=== PATIENT | female | born 1980 | race Caucasian/White ===

== ENCOUNTER 2019-01-17 11:25 | Outpatient (CLI) | payer OTHER ==
[2019-01-17 12:19] LABS: Bacteria,Urine 1+ /HPF (Negative); Bilirubin,Urine NEG (Negative); Blood,Urine NEG (Negative); Color,Urine Yellow (Yellow); Mucus,Urine FEW /HPF; Protein,Urine <15 mg/dL mg/dL (Negative); Urobilinogen,Urine < 2.0 mg/dL (<2.0)
[2019-01-17] MEDS ORDERED: LACTATED RINGERS 1,000 ML ONE ×2 (14:12→16:57)
[2019-01-17] MEDS: BRETHINE SUB-Q PRN ×2 (18:09→19:03)
[2019-01-17 19:49] VITALS: BP 100/57
== END 2019-01-17 20:25 | disposition home or self-care (01) ==
LOC: TRG 11:25
PROVIDERS: ATTEND Obstetrics & Gynecology
DX: O26.893 Other specified pregnancy related conditions, third trimester (principal); R10.32 Left lower quadrant pain; O09.523 Supervision of elderly multigravida, third trimester; O47.03 False labor before 37 completed weeks of gestation, third trimester; Z3A.28 28 weeks gestation of pregnancy
CPT/HCPCS: 59025; 81001; 96372; J3105; J7120; 96360

== ENCOUNTER 2019-04-09 15:46 | Outpatient (CLI) | payer OTHER ==
[2019-04-09 16:23] VITALS: BP 108/64
--- NOTE | 2019-04-09 20:15 | Ultrasound Report ---
Examination: Ultrasound Obstetrical Limited, 04/09/2019 INDICATION: Evaluate well being. The patient reports a history of fall. COMPARISON: No previous studies are available for comparison FINDINGS: There is a single living intrauterine with the head in the cephalic position. Amniotic flui d index measures 10.5 cm, which is within normal limits. The heart rate is 133 beats per minute . Signer Name: Maci Flores MD Signed: 04/09/2019 8:10 PM Workstation Name: [email or web address]
--- NOTE | 2019-04-09 20:16 | Ultrasound Report ---
ULTRASOUND BIOPHYSICAL PROFILE INDICATION / CLINICAL INFORMATION: The patient has a history of fall. Evaluate well-being. COMPARISON: Limited obstetrical ultrasound, 04/09/2019 FINDINGS: BREATHING MOVEMENT = 2 GROSS BODY MOVEMENT = 2 TONE = 2 QUALITATIVE AMNIOTIC FLUID VOLUME = 2 TOTAL BIOPHYSICAL SCORE = 02/13 AMNIOTIC FLUID INDEX (cm) = 10.5 PRESENTATION: Cephalic. HEART RATE (beats per minute): 133 IMPRESSION: 1. biophysical profile = 02/13 Signer Name: Maci Flores MD Signed: 04/09/2019 8:11 PM Workstation Name: [id number]
[2019-04-09] MEDS ORDERED: LACTATED RINGERS 1,000 ML ONE (20:55)
[2019-04-09] MEDS ORDERED: REGLAN ONE (21:00)
[2019-04-09] MEDS ORDERED: PITOCin/NS 20 UNIT/1000ML DRIP 0 MILLIUNITS/0 ML BAG IV ONE (21:00)
[2019-04-09] MEDS ORDERED: BICITRA ONE (21:00)
[2019-04-09] MEDS ORDERED: PEPCID IV ONE (21:00)
== END 2019-04-09 23:51 | disposition home or self-care (01) ==
LOC: TRG 15:46 → LD 15:48 → TRG 23:51
PROVIDERS: ATTEND Obstetrics & Gynecology
DX: O26.893 Other specified pregnancy related conditions, third trimester (principal); O09.523 Supervision of elderly multigravida, third trimester; W19.XXXA Unspecified fall, initial encounter; Z3A.39 39 weeks gestation of pregnancy; Y93.89 Activity, other specified; Y92.89 Other specified places as the place of occurrence of the external cause; Y99.8 Other external cause status
CPT/HCPCS: 59025; 76815; 76819; J2590; J2765; J7120

== ENCOUNTER 2019-04-15 06:39 | Inpatient (IN) | payer SELFPAY ==
[2019-04-15] MEDS ORDERED: BUTORPHANOL 2 MG/1 ML INJ IV PRN (08:06)
[2019-04-15] MEDS ORDERED: ONDANSETRON 4 MG/2 ML INJ IV PRN ×2 (08:06→11:00)
[2019-04-15] MEDS ORDERED: fentaNYL 100 MCG/2 ML INJ IV PRN (08:06)
[2019-04-15] MEDS ORDERED: TERBUTALINE 1 MG/1 ML INJ SUB-Q PRN (08:06)
[2019-04-15] MEDS ORDERED: ePHEDrine SULFATE 50 MG/1 ML INJ IV PRN (08:06)
[2019-04-15] MEDS ORDERED: LACTATED RINGERS 1,000 ML ONE (08:12)
[2019-04-15 08:18] LABS: Hemoglobin 12.7 gm/dl (10.1-14.3); Mean Corpuscular HGB Conc 34 % (30-34); Mean Corpuscular Volume 91 fl (79-97); Platelet Count 151 K/mm3 (140-440); Red Blood Count 4.05 M/mm3 (3.65-5.03)
--- NOTE | 2019-04-15 08:27 | History and Physical Report ---
History of Present Illness Date of examination: 04/15/19 Date of admission: 04/15/19 07:50 Chief complaint: Active labor; 40.4 weeks gestation History of present illness: 38 yo, @ 40.4 weeks gestation, who initiated care with [facility] Team Lead @ 8.3 wks gestation. Her course has been complicated by AMA and anemia. She presents to [facility] this am with reports of regular, painful ctxs for the past couple of hours. She reports positive FM. Denies VB or LOF. Labs: O+, antibody negative; Rubella immune; VDRL non-reactive; HBsAg negative; HIV negative; GC/Chlamydia negative; urine culture negative; 1 hr gtt - 118; GBS negative. Past History Past Medical History: other (Degenerative disc disease 2017 (Cervical spine)) Past Surgical History: no surgical history Family/Genetic History: heart disease, hypertension, cancer (skin) Social history: , lives with family, full code. denies: smoking, alcohol abuse, prescription drug abuse, IV drug use - Obstetrical History Expected Date of Delivery: 04/11/19 Actual Gestation: 40 Week(s) 4 Day(s) : 4 Para: 2 Hx # Term Pregnancies: 2 Number of Pregnancies: 0 Spontaneous Abortions: 1 Induced : 0 Number of Living Children: 2 #1 Infant Gender: Female year: 2,007 Birthweight: 3.856 kg Method of Delivery: Vaginal Gestational age at delivery: 40 Complications: none #2 year: 2,011 (SAB) #3 Infant Gender: Female year: 2,012 Birthweight: 4.082 kg Method of Delivery: Vaginal Gestational age at delivery: 40 Complications: none Medications and Allergies Allergies Allergy/AdvReac Type Severity Reaction Status Date / Time No Known Allergies Allergy Verified 01/17/19 11:46 Home Medications Medication Instructions Recorded Confirmed Last Taken Type No Known Home Medications [No 04/15/19 04/15/19 Unknown History Reported Home Medications] Active Meds: Active Medications Butorphanol Tartrate (Stadol) 2 mg IV Q2H PRN PRN Reason: Pain , Severe (7-10) Ephedrine Sulfate (Ephedrine Sulfate) 10 mg IV Q2M PRN PRN Reason: Hypotension Fentanyl (Sublimaze) 100 mcg IV Q2H PRN PRN Reason: Labor Pain Oxytocin/Sodium Chloride (Pitocin/Ns 20 Unit/1000ml Drip) 20 units in 1,000 mls @ 125 mls/hr IV DIRECT JAMAAL Oxytocin/Sodium Chloride (Pitocin/Ns 30 Unit/500ml) 30 units in 500 mls @ 2 mls/hr IV TITR JAMAAL; Protocol Lactated Ringer's (Lactated Ringers) 1,000 mls @ 125 mls/hr IV DIRECT JAMAAL Lidocaine (Xylocaine 2%) 20 ml INFILTRATI ONCE ONE Stop: 04/15/19 08:07 Mineral Oil (Mineral Oil) 30 ml PO QHS PRN PRN Reason: Constipation Ondansetron HCl (Zofran) 4 mg IV Q8H PRN PRN Reason: Nausea And Vomiting Terbutaline Sulfate (Brethine) 0.25 mg SUB-Q ONCE PRN PRN Reason: Hyperstimulation/Hypertonicity Review of Systems All systems: negative Genitourinary: contractions - Vital Signs Vital signs: Vital Signs Pulse BP 83 128/78 04/15/19 07:07 04/15/19 07:07 Temp Pulse Resp BP Pulse Ox 97.4 F L 79 20 109/65 96 04/15/19 07:58 04/15/19 08:20 04/15/19 07:58 04/15/19 07:58 04/15/19 08:20 - Physical Exam Breasts: Positive: deferred Cardiovascular: Regular rate Lungs: Positive: Normal air movement Abdomen: Positive: other (gravid) Genitourinary (Female): Positive: normal external genitalia Vagina: Positive: normal moisture Uterus: Positive: other (S=D) Extremities: Positive: normal Deep Tendon Reflex Grade: Normal +2 - Obstetrical FHR: category 1 Uterine Contraction Monitor Mode: External Cervical Dilatation: 7 Cervical Effacement Percentage: 90 station: 0 Uterine Contraction Frequency (min): 4-5 Uterine Contraction Pattern: Irregular Uterine Tone Measurement Phase: Resting Uterine Contraction Intensity: Strong/Firm Results Result Diagrams: 04/15/19 Unknown All other labs normal. Assessment and Plan - Patient Problems (1) 40 weeks gestation of Current Visit: Yes Status: Acute (2) Active labor at term Current Visit: Yes Status: Acute Plan to address problem: Admit to L & D AROM, clear fluids @ 0820 Pain meds as desired Anticipate (3) Advanced maternal age in Current Visit: Yes Status: Acute
[2019-04-15] MEDS ORDERED: OXYTOCIN 20 UNIT/1000ML DRIP 20 UNITS/1,000 ML BAG IV SCH (09:00)
[2019-04-15] MEDS ORDERED: LACTATED RINGERS 1,000 ML IV SCH (09:00)
[2019-04-15] MEDS ORDERED: OXYTOCIN DRIP 30 UNITS/500 ML BAG IV SCH (09:00)
[2019-04-15] MEDS ORDERED: LIDOCAINE (2%) 20 MG/1 ML VIAL 20 ML MDV INFILTRATI ONE (09:30)
[2019-04-15] MEDS ORDERED: diphenhydrAMINE 25 MG CAP PO PRN (10:30)
--- NOTE | 2019-04-15 10:35 | Procedure Note ---
OB Delivery Note - Delivery Date of Delivery: 04/15/19 (5481) Surgeon: MALOU ROGEL (CNM) Estimated blood loss: other (250cc) - Vaginal Delivery presentation: vertex Delivery position: OA (EMILY) Intrapartum events: none Delivery augmentation: rupture of membranes (AROM @ 0820) Delivery monitor: external FHT, external uterine Route of delivery: Delivery placenta: spontaneous (0952) Delivery cord: 3 umbilical vessels Episiotomy: none Delivery laceration: 2nd degree (Rt perineal) Delivery repair: vicryl (3.0 on SH) Anesthesia: none Delivery comments: of quiet, viable female infant, placed directly to maternal abdomen. Cried after stimulation. Cord double clamped, cut by FOB, after cessation of pulsation. Placenta spontaneously delivered, lemuel, disposed per hospital policy. Fundus firm @ U, hemostasis maintained. Second degree, right perineal laceration, repaired without difficulty. Mother and baby safe, stable and bonding well. - A at 1 minute: 7 at 5 minutes: 9 Infant Gender: Female (Weight: 4041 gms (9 lbs), length pending)
[2019-04-15] MEDS ORDERED: LANOLIN/ZINC/DIMETHICONE (LANSINOH) 7 GM TP PRN (11:00)
[2019-04-15] MEDS ORDERED: PROMETHAZINE 25 MG TAB PO PRN (11:00)
[2019-04-15] MEDS ORDERED: WITCH HAZEL/ GLYCERIN PAD TP PRN (11:00)
[2019-04-15] MEDS: oxyCODONE /ACETAMINOPHEN 5-325MG TAB PO PRN (13:26)
[2019-04-15] MEDS ORDERED: BENZOCAINE/MENTHOL 20/0.5% TOP SPRAY 56 GM TP PRN (16:37)
[2019-04-15] MEDS: IBUPROFEN 600 MG TAB PO SCH ×2 (17:05→22:01)
[2019-04-15 20:59] LABS: Hematocrit 35.7 % (30.3-42.9); Hemoglobin 12.1 gm/dl (10.1-14.3)
[2019-04-15] MEDS ORDERED: MINERAL OIL 30 ML ORAL LIQD PO PRN (22:00)
[2019-04-15] MEDS ORDERED: MAGNESIUM HYDROXIDE (MOM) ORAL LIQD UDC PO PRN (22:00)
[2019-04-16] MEDS: oxyCODONE /ACETAMINOPHEN 5-325MG TAB PO PRN ×2 (04:46→16:25)
[2019-04-16] MEDS: IBUPROFEN 600 MG TAB PO SCH ×3 (04:47→16:26)
[2019-04-16] MEDS ORDERED: FERROUS SULFATE 325 MG TAB PO SCH (10:00)
[2019-04-16] MEDS ORDERED: medroxyPROGESTERone ACETATE 150 MG/ML SYRINGE IM ONE ×2 (10:32→20:00)
--- NOTE | 2019-04-16 10:36 | Progress Note ---
Assessment and Plan A: PP Day #1 Stable P: Follow Routine Orders D/C home today per patient request Depo Provera prior to discharge RTO in 6 Weeks Subjective - Subjective Date of service: 04/16/19 Patient reports: appetite normal, voiding normally, pain well controlled, flatus, ambulating normally : doing well, bottle feeding (and ) Objective - Vital Signs Latest vital signs: Vital Signs Temp Pulse Resp BP BP Pulse Ox 04/16/19 08:16 97.9 F 78 20 111/69 04/16/19 04:47 18 04/16/19 04:46 18 04/16/19 00:00 98.4 F 74 18 104/68 04/15/19 20:00 98.6 F 71 16 112/69 04/15/19 15:32 98.4 F 67 20 102/55 96 04/15/19 11:49 98.2 F 68 15 93/53 97 04/15/19 11:30 98.4 F 04/15/19 11:15 74 104/63 04/15/19 11:00 75 105/67 04/15/19 10:45 78 89/54 Intake and Output 04/15/19 04/16/19 04/16/19 22:59 06:59 14:59 Intake Total 120 120 Output Total 300 Balance -180 120 Intake: Oral 120 120 Output: Urine 300 Void 300 Other: Total, Intake Amount 120 120 Total, Output Amount 300 # Voids Void 1 1 - Exam Breasts: Present: normal Cardiovascular: Present: Regular rate Abdomen: Present: normal appearance, soft, normal bowel sounds Uterus: Present: normal, firm, fundal height below umbilicus Extremities: Present: normal
--- NOTE | 2019-04-16 10:38 | Discharge Summary ---
Providers - Providers Date of Admission: 04/15/19 07:50 Date of discharge: 04/16/19 Attending physician: DANYELLE MAGALLANES MD Primary care physician: GAVIN LE MD Hospitalization Reason for admission: active labor Delivery: Episiotomy: none Laceration: none Other procedures: none complications: none Discharge diagnosis: IUP at term delivered Condition at discharge: Good Disposition: DC-01 TO HOME OR SELFCARE Plan - Provider Discharge Summary Activity: routine, no sex for 6 weeks, no heavy lifting 4 weeks, no strenuous exercise Diet: routine Instructions: routine Additional instructions: [] Smoking cessation referral if applicable(refer to patient education folder for contact #) [] Refer to [facility] Booklet Call your doctor immediately for: * Fever > 100.5 * Heavy vaginal bleeding ( >1 pad per hour) * Severe persistent headache * Shortness of breath * Reddened, hot, painful area to leg or breast * Drainage or odor from incision. * Keep incision clean and dry at all times and follow doctor's instructions regarding bathing/showering - Follow up plan Follow up: GAVIN LE MD [Primary Care Provider] - 6 Weeks
[2019-04-16] MEDS ORDERED: FLU VACC QUAD 2019-20 (3 YR UP)/PF 60 MCG/0.5 ML SYRINGE IM ONE (12:00)
[2019-04-16 18:32] VITALS: BP 116/67
== END 2019-04-16 23:37 | disposition home or self-care (01) | DRG 807 ==
LOC: TRG 06:39 → LD 07:50 → OB 12:00
PROVIDERS: ADMIT Obstetrics & Gynecology; ATTEND Obstetrics & Gynecology
PROC: 10E0XZZ Delivery of Products of Conception, External Approach (ICD-10-PCS; principal; 2019-04-15)
PROC: 0KQM0ZZ Repair Perineum Muscle, Open Approach (ICD-10-PCS; 2019-04-15)
PROC: 10907ZC Drainage of Amniotic Fluid, Therapeutic from Products of Conception, Via Natural or Artificial Opening (ICD-10-PCS; 2019-04-15)
DX: O99.02 Anemia complicating childbirth (principal); Z37.0 Single live birth; Z3A.40 40 weeks gestation of pregnancy; Z82.49 Family history of ischemic heart disease and other diseases of the circulatory system; Z80.8 Family history of malignant neoplasm of other organs or systems; O70.1 Second degree perineal laceration during delivery
CPT/HCPCS: 36415; 85014; 85018; 85027; 86592; 86850; 86900; 86901; G0378; A6250; J2590; J3010; J7120

== ENCOUNTER 2020-04-02 23:07 | Emergency (ER) | payer SELFPAY ==
[2020-04-02 23:53] LABS: Basophils % (Auto) 0.5 % (0.0-1.8); Eosinophils # (Auto) 0.2 K/mm3 (0.0-0.4); Eosinophils % (Auto) 2.3 % (0.0-4.3); Hematocrit 34.4 % (30.3-42.9); Hemoglobin 11.9 gm/dl (10.1-14.3); Lymphocytes # (Auto) 2.1 K/mm3 (1.2-5.4); Lymphocytes % (Auto) 28.8 % (13.4-35.0); Mean Corpuscular HGB Conc 35 % (30-34); Mean Corpuscular Volume 84 fl (79-97); Monocytes # (Auto) 0.6 K/mm3 (0.0-0.8); Monocytes % (Auto) 8.3 % (0.0-7.3); Platelet Count 225 K/mm3 (140-440)
[2020-04-03 00:16] LABS: Alanine Aminotransferase 16 units/L (7-56); Albumin 4.1 g/dL (3.9-5); Blood Urea Nitrogen 13 mg/dL (7-17); Calcium 9.2 mg/dL (8.4-10.2); Hemolysis Index 8
[2020-04-03 00:18] LABS: Bilirubin,Urine NEG (Negative); Blood,Urine MOD (Negative); Color,Urine Straw (Yellow); Protein,Urine <15 mg/dL mg/dL (Negative); Urobilinogen,Urine < 2.0 mg/dL (<2.0)
--- NOTE | 2020-04-03 00:37 | Emergency Department Report ---
ED HPI - General Chief complaint: Vaginal Bleeding Stated complaint: VAGINAL BLEEDING Time Seen by Provider: 04/03/20 00:03 Source: patient Mode of arrival: Ambulatory Limitations: No Limitations - History of Present Illness Initial comments: 39-year-old female presents with complaints of vaginal bleeding in x last night. She states she is G4, . She also reports some right sided abdominal pain that she rates as a 5/10 in severity describes as a cramping pain. Patient states the bleeding is light and denies any dy suria/hematuria, vaginal discharge, fever/chills/sweats, nausea/vomiting/diarrhea, or constipation. She states her first TRANSACTION ADVISORY SERVICES MANAGER appointment is scheduled for next week. - Related Data Home Medications Medication Instructions Recorded Confirmed Last Taken No Known Home Medications [No 04/15/19 04/15/19 Unknown Reported Home Medications] Allergies Allergy/AdvReac Type Severity Reaction Status Date / Time No Known Allergies Allergy Verified 01/17/19 11:46 ED Review of Systems ROS: Stated complaint: VAGINAL BLEEDING Other details as noted in HPI Constitutional: denies: chills, diaphoresis, fever, malaise, weakness Respiratory: denies: shortness of breath Cardiovascular: denies: chest pain Gastrointestinal: abdominal pain Genitourinary: denies: urgency, dysuria, frequency, hematuria, discharge, dyspareunia Skin: denies: rash, lesions Neurological: denies: headache Hematological/Lymphatic: denies: swollen glands ED Past Medical Hx - Past Medical History Previous Medical History?: No Hx Hypertension: No Hx Congestive Heart Failure: No Hx Diabetes: No Hx Deep Vein Thrombosis: No Hx Renal Disease: No Hx Sickle Cell Disease: No Hx Seizures: No Hx Asthma: No Hx COPD: No Hx HIV: No - Surgical History Past Surgical History?: No - Social History Smoking Status: Never Smoker Substance Use Type: None - Medications Home Medications: Home Medications Medication Instructions Recorded Confirmed Last Taken Type No Known Home Medications [No 04/15/19 04/15/19 Unknown History Reported Home Medications] ED Physical Exam - General Limitations: No Limitations General appearance: alert, in no apparent distress - Head Head exam: Present: atraumatic, normocephalic - Eye Eye exam: Present: normal appearance - ENT ENT exam: Present: mucous membranes moist - Neck Neck exam: Present: normal inspection - Respiratory Respiratory exam: Present: normal lung sounds bilaterally. Absent: respiratory distress - Cardiovascular Cardiovascular Exam: Present: regular rate, normal rhythm. Absent: systolic murmur, diastolic murmur, rubs, gallop - GI/Abdominal GI/Abdominal exam: Present: soft, tenderness (Minimal right lower quadrant tenderness to palpation), normal bowel sounds. Absent: distended, guarding, rebound, rigid - Extremities Exam Extremities exam: Present: normal inspection - Back Exam Back exam: Present: normal inspection. Absent: CVA tenderness (R), CVA tenderness (L) - Neurological Exam Neurological exam: Present: alert, oriented X3 - Psychiatric Psychiatric exam: Present: normal affect, normal mood - Skin Skin exam: Present: warm, dry, intact, normal color. Absent: rash ED Course Vital Signs 04/02/20 23:34 Temperature 98.0 F Pulse Rate 73 Respiratory 16 Rate Blood Pressure 113/72 O2 Sat by Pulse 100 Oximetry ED Medical Decision Making - Lab Data Result diagrams: 04/02/20 23:41 04/02/20 23:46 Lab Results 04/02/20 04/02/20 04/02/20 Range/Units 23:41 23:41 23:41 WBC 7.3 (4.5-11.0) K/mm3 RBC 4.10 (3.65-5.03) M/mm3 Hgb 11.9 (10.1-14.3) gm/dl Hct 34.4 (30.3-42.9) % MCV 84 (79-97) fl MCH 29 (28-32) pg MCHC 35 H (30-34) % RDW 16.0 H (13.2-15.2) % Plt Count 225 (140-440) K/mm3 Lymph % (Auto) 28.8 (13.4-35.0) % [place] % (Auto) 8.3 H (0.0-7.3) % Eos % (Auto) 2.3 (0.0-4.3) % Baso % (Auto) 0.5 (0.0-1.8) % Lymph # (Auto) 2.1 (1.2-5.4) K/mm3 [place] # (Auto) 0.6 (0.0-0.8) K/mm3 Eos # (Auto) 0.2 (0.0-0.4) K/mm3 Baso # (Auto) 0.0 (0.0-0.1) K/mm3 Seg Neutrophils % 60.1 (40.0-70.0) % Seg Neutrophils # 4.4 (1.8-7.7) K/mm3 Sodium (137-145) mmol/L Potassium (3.6-5.0) mmol/L Chloride (98-107) mmol/L Carbon Dioxide (22-30) mmol/L Anion Gap mmol/L BUN (7-17) mg/dL Creatinine (0.6-1.2) mg/dL Estimated GFR ml/min BUN/Creatinine Ratio % Glucose (65-100) mg/dL Calcium (8.4-10.2) mg/dL Total Bilirubin (0.1-1.2) mg/dL AST (5-40) units/L ALT (7-56) units/L Alkaline Phosphatase (35-129) units/L Total Protein (6.3-8.2) g/dL Albumin (3.9-5) g/dL Albumin/Globulin Ratio % HCG, Quant 24111 H (0-4) mIU/mL Urine Color (Yellow) Urine Turbidity (Clear) Urine pH (5.0-7.0) Ur Specific [place] (1.003-1.030) Urine Protein (Negative) mg/dL Urine Glucose (UA) (Negative) mg/dL Urine Ketones (Negative) mg/dL Urine Blood (Negative) Urine Nitrite (Negative) Urine Bilirubin (Negative) Urine Urobilinogen (<2.0) mg/dL Ur Leukocyte Esterase (Negative) Urine WBC (Auto) (0.0-6.0) /HPF Urine RBC (Auto) (0.0-6.0) /HPF U Epithel Cells (Auto) (0-13.0) /HPF Blood Type O POSITIVE 04/02/20 04/02/20 Range/Units 23:46 23:58 WBC (4.5-11.0) K/mm3 RBC (3.65-5.03) M/mm3 Hgb (10.1-14.3) gm/dl Hct (30.3-42.9) % MCV (79-97) fl MCH (28-32) pg MCHC (30-34) % RDW (13.2-15.2) % Plt Count (140-440) K/mm3 Lymph % (Auto) (13.4-35.0) % [place] % (Auto) (0.0-7.3) % Eos % (Auto) (0.0-4.3) % Baso % (Auto) (0.0-1.8) % Lymph # (Auto) (1.2-5.4) K/mm3 [place] # (Auto) (0.0-0.8) K/mm3 Eos # (Auto) (0.0-0.4) K/mm3 Baso # (Auto) (0.0-0.1) K/mm3 Seg Neutrophils % (40.0-70.0) % Seg Neutrophils # (1.8-7.7) K/mm3 Sodium 137 (137-145) mmol/L Potassium 4.0 (3.6-5.0) mmol/L Chloride 101.1 (98-107) mmol/L Carbon Dioxide 21 L (22-30) mmol/L Anion Gap 19 mmol/L BUN 13 (7-17) mg/dL Creatinine 0.5 L (0.6-1.2) mg/dL Estimated GFR > 60 ml/min BUN/Creatinine Ratio 26 % Glucose 98 (65-100) mg/dL Calcium 9.2 (8.4-10.2) mg/dL Total Bilirubin < 0.20 (0.1-1.2) mg/dL AST 13 (5-40) units/L ALT 16 (7-56) units/L Alkaline Phosphatase 112 (35-129) units/L Total Protein 7.0 (6.3-8.2) g/dL Albumin 4.1 (3.9-5) g/dL Albumin/Globulin Ratio 1.4 % HCG, Quant (0-4) mIU/mL Urine Color Straw (Yellow) Urine Turbidity Clear (Clear) Urine pH 7.0 (5.0-7.0) Ur Specific [place] 1.010 (1.003-1.030) Urine Protein <15 mg/dl (Negative) mg/dL Urine Glucose (UA) Neg (Negative) mg/dL Urine Ketones Neg (Negative) mg/dL Urine Blood Mod (Negative) Urine Nitrite Neg (Negative) Urine Bilirubin Neg (Negative) Urine Urobilinogen < 2.0 (<2.0) mg/dL Ur Leukocyte Esterase Tr (Negative) Urine WBC (Auto) 5.0 (0.0-6.0) /HPF Urine RBC (Auto) 3.0 (0.0-6.0) /HPF U Epithel Cells (Auto) 2.0 (0-13.0) /HPF Blood Type - Radiology Data Radiology results: report reviewed ULTRASOUND OBSTETRIC INDICATION / CLINICAL INFORMATION: vaginal bleeding. TECHNIQUE: Transabdominal and Transvaginal. COMPARISON: None available. FINDINGS: GESTATIONAL SAC: Well-defined oval shape and intrauterine in location. YOLK SAC: No significant abnormality. EMBRYO/FETUS: No significant abnormality. - Keiser-Rump Length = 0.69 cm = 6.4 weeks.days - Heart Rate, beats per minute (if present) = 140 ADNEXA: No significant abnormality. FREE FLUID: None. ADDITIONAL FINDINGS: None. IMPRESSION: 1. Single, living intrauterine with estimated sonographic age of 6.4 weeks.days. - Medical Decision Making 39-year-old female presents with complaints of vaginal bleeding in x last night. She states she is G4, . She also reports some right sided abdominal pain that she rates as a 5/10 in severity describes as a cramping pain. Patient states the bleeding is light and denies any dysuria/hematuria, vaginal discharge, fever/chills/sweats, nausea/vomiting/diarrhea, or constipation. She states her first TRANSACTION ADVISORY SERVICES MANAGER appointment is scheduled for next [place] [address]. Ultrasound shows 6.4-week intrauterine . No other abnormalities are noted on ultrasound. CBC, CMP, and UA are without abnormal findings. Patient's vitals are normal she is well-appearing. She is stable for discharge home with follow-up with her TRANSACTION ADVISORY SERVICES MANAGER. Advised pelvic rest. Strict return precautions were discussed in detail with patient who verbalized understanding. Critical care attestation.: If time is entered above; I have spent that time in minutes in the direct care of this critically ill patient, excluding procedure time. ED Disposition Clinical Impression: Threatened miscarriage, 6 weeks gestation of Disposition: DC-01 TO HOME OR SELFCARE Is pt being admited?: No Condition: Stable Instructions: Threatened Miscarriage (ED), (ED) Additional Instructions: Please follow-up with your TRANSACTION ADVISORY SERVICES MANAGER as scheduled next week. Referrals: PRIMARY CARE, [Primary Care Provider] - 3-5 Days Print Language: MONEGASQUE
[2020-04-03 00:42] LABS: BUN/Creatinine Ratio 26
--- NOTE | 2020-04-03 02:01 | Ultrasound Report ---
ULTRASOUND OBSTETRIC INDICATION / CLINICAL INFORMATION: vaginal bleeding. TECHNIQUE: Transabdominal and Transvaginal. COMPARISON: None available. FINDINGS: GESTATIONAL SAC: Well-defined oval shape and intrauterine in location. YOLK SAC: No significant abnormality. EMBRYO/FETUS: No significant abnormality. - [place]-Rump Length = 0.69 cm = 6.4 weeks.days - Heart Rate, beats per minute (if present) = 140 ADNEXA: No significant abnormality. FREE FLUID: None. ADDITIONAL FINDINGS: None. IMPRESSION: 1. Single, living intrauterine with estimated sonographic age of 6.4 weeks.days. Signer Name: Kushal Lazar MD Signed: 04/03/2020 1:56 AM Workstation Name: [employer]
--- NOTE | 2020-04-03 02:01 | Ultrasound Report ---
ULTRASOUND OBSTETRIC INDICATION / CLINICAL INFORMATION: vaginal bleeding. TECHNIQUE: Transabdominal and Transvaginal. COMPARISON: None available. FINDINGS: GESTATIONAL SAC: Well-defined oval shape and intrauterine in location. YOLK SAC: No significant abnormality. EMBRYO/FETUS: No significant abnormality. - Graf-Rump Length = 0.69 cm = 6.4 weeks.days - Heart Rate, beats per minute (if present) = 140 ADNEXA: No significant abnormality. FREE FLUID: None. ADDITIONAL FINDINGS: None. IMPRESSION: 1. Single, living intrauterine with estimated sonographic age of 6.4 weeks.days. Signer Name: Kushal Lazar MD Signed: 04/03/2020 1:56 AM Workstation Name: [email or web address]
[2020-04-03 04:27] VITALS: BP 100/64
== END 2020-04-03 02:40 | disposition home or self-care (01) ==
LOC: ED 23:07
DX: O20.0 Threatened abortion (principal); Z3A.01 Less than 8 weeks gestation of pregnancy
CPT/HCPCS: 36415; 76801; 76817; 80053; 81001; 84702; 85025; 86900; 86901

== ENCOUNTER 2020-04-07 18:30 | Emergency (ER) | payer SELFPAY ==
--- NOTE | 2020-04-07 21:37 | Emergency Department Report ---
ED HPI - General Chief complaint: Vaginal Bleeding Stated complaint: 7 WEEKS PREG VAG DISCHARGE Time Seen by Provider: 04/07/20 19:38 Source: patient Mode of arrival: Ambulatory Limitations: No Limitations - History of Present Illness Initial comments: 39-year-old female patient presents with complaints of vaginal bleeding during and lower abdominal cramping pain x today. She states she is 7 weeks and is scheduled to see her DATA MANAGEMENT SPECIALIST tomorrow, however was told by her DATA MANAGEMENT SPECIALIST to come into the ED for an ultrasound. She is G4, . She states she has gone through 1 pad for bleeding. She rates her current abdominal pain as a 4/10 in severity and states it is mostly right-sided. She denies any dysuria/hematuria, vaginal discharge/dyspareunia, fever/chills/sweats, nausea/vomiting, or diarrhea/constipation/melena/hematochezia. Patient does also complain of vaginal itching x3 days. - Related Data Previous Rx's Medication Instructions Recorded Last Taken Type Amoxicillin/Potassium Clav 1 each PO BID 7 Days #14 tablet 04/07/20 Unknown Rx [Augmentin 875-125 Tablet] Clotrimazole [3-Day Vaginal Cream] 1 applicator VG QHS 7 Days #1 tube 04/07/20 Unknown Rx Allergies Allergy/AdvReac Type Severity Reaction Status Date / Time No Known Allergies Allergy Verified 01/17/19 11:46 ED Review of Systems ROS: Stated complaint: 7 WEEKS PREG VAG DISCHARGE Other details as noted in HPI Constitutional: denies: chills, fever, malaise Respiratory: denies: cough, shortness of breath Cardiovascular: denies: chest pain Gastrointestinal: abdominal pain. denies: nausea Genitourinary: denies: urgency, dysuria, frequency, hematuria, dyspareunia Skin: denies: lesions, change in color Neurological: denies: headache ED Past Medical Hx - Past Medical History Previous Medical History?: No Hx Hypertension: No Hx Congestive Heart Failure: No Hx Diabetes: No Hx Deep Vein Thrombosis: No Hx Renal Disease: No Hx Sickle Cell Disease: No Hx Seizures: No Hx Asthma: No Hx COPD: No Hx HIV: No - Surgical History Past Surgical History?: No - Social History Smoking Status: Never Smoker Substance Use Type: None - Medications Home Medications: Home Medications Medication Instructions Recorded Confirmed Last Taken Type Amoxicillin/Potassium Clav 1 each PO BID 7 Days #14 tablet 04/07/20 Unknown Rx [Augmentin 875-125 Tablet] Clotrimazole [3-Day Vaginal Cream] 1 applicator VG QHS 7 Days #1 tube 04/07/20 Unknown Rx ED Physical Exam - General Limitations: No Limitations General appearance: alert, in no apparent distress - Head Head exam: Present: atraumatic, normocephalic - Eye Eye exam: Present: normal appearance - ENT ENT exam: Present: mucous membranes moist - Neck Neck exam: Present: normal inspection - Respiratory Respiratory exam: Present: normal lung sounds bilaterally, respiratory distress - Cardiovascular Cardiovascular Exam: Present: regular rate, normal rhythm, normal heart sounds - GI/Abdominal GI/Abdominal exam: Present: soft, tenderness (Right lower quadrant and suprapubic). Absent: distended, guarding, rebound, rigid - Extremities Exam Extremities exam: Present: normal inspection - Back Exam Back exam: Present: normal inspection - Neurological Exam Neurological exam: Present: alert, oriented X3, normal gait - Psychiatric Psychiatric exam: Present: normal affect, normal mood - Skin Skin exam: Present: warm, dry, intact, normal color. Absent: rash, cyanosis, diaphoretic, ecchymosis ED Course Vital Signs 04/07/20 18:56 Temperature 98.8 F Pulse Rate 76 Respiratory 18 Rate Blood Pressure 107/48 [Right] O2 Sat by Pulse 98 Oximetry ED Medical Decision Making - Lab Data Result diagrams: 04/07/20 21:19 04/07/20 21:19 Lab Results 04/07/20 04/07/20 04/07/20 Range/Units 21:19 21:19 21:19 WBC 6.9 (4.5-11.0) K/mm3 RBC 4.25 (3.65-5.03) M/mm3 Hgb 12.3 (10.1-14.3) gm/dl Hct 36.1 (30.3-42.9) % MCV 85 (79-97) fl MCH 29 (28-32) pg MCHC 34 (30-34) % RDW 15.8 H (13.2-15.2) % Plt Count 226 (140-440) K/mm3 Lymph % (Auto) 22.5 (13.4-35.0) % Prentiss % (Auto) 7.3 (0.0-7.3) % Eos % (Auto) 1.7 (0.0-4.3) % Baso % (Auto) 0.3 (0.0-1.8) % Lymph # (Auto) 1.5 (1.2-5.4) K/mm3 Prentiss # (Auto) 0.5 (0.0-0.8) K/mm3 Eos # (Auto) 0.1 (0.0-0.4) K/mm3 Baso # (Auto) 0.0 (0.0-0.1) K/mm3 Add Manual Diff Complete Seg Neutrophils % 68.2 (40.0-70.0) % Seg Neutrophils # 4.7 (1.8-7.7) K/mm3 Sodium (137-145) mmol/L Potassium (3.6-5.0) mmol/L Chloride (98-107) mmol/L Carbon Dioxide (22-30) mmol/L Anion Gap mmol/L BUN (7-17) mg/dL Creatinine (0.6-1.2) mg/dL Estimated GFR ml/min BUN/Creatinine Ratio % Glucose (65-100) mg/dL Calcium (8.4-10.2) mg/dL Total Bilirubin (0.1-1.2) mg/dL AST (5-40) units/L ALT (7-56) units/L Alkaline Phosphatase (35-129) units/L Total Protein (6.3-8.2) g/dL Albumin (3.9-5) g/dL Albumin/Globulin Ratio % HCG, Qual Positive (Negative) HCG, Quant 27656 H (0-4) mIU/mL Urine Color (Yellow) Urine Turbidity (Clear) Urine pH (5.0-7.0) Urine Protein (Negative) mg/dL Urine Glucose (UA) (Negative) mg/dL Urine Ketones (Negative) mg/dL Urine Nitrite (Negative) Urine Bilirubin (Negative) Urine Urobilinogen (<2.0) mg/dL Ur Leukocyte Esterase (Negative) Urine WBC (Auto) (0.0-6.0) /HPF Urine RBC (Auto) (0.0-6.0) /HPF U Epithel Cells (Auto) (0-13.0) /HPF Urine Bacteria (Auto) (Negative) /HPF Urine Mucus /HPF Blood Type 09/30/20 09/30/20 09/30/20 Range/Units 21:19 21:19 21:51 WBC (4.5-11.0) K/mm3 RBC (3.65-5.03) M/mm3 Hgb (10.1-14.3) gm/dl Hct (30.3-42.9) % MCV (79-97) fl MCH (28-32) pg MCHC (30-34) % RDW (13.2-15.2) % Plt Count (140-440) K/mm3 Lymph % (Auto) (13.4-35.0) % Prentiss % (Auto) (0.0-7.3) % Eos % (Auto) (0.0-4.3) % Baso % (Auto) (0.0-1.8) % Lymph # (Auto) (1.2-5.4) K/mm3 Prentiss # (Auto) (0.0-0.8) K/mm3 Eos # (Auto) (0.0-0.4) K/mm3 Baso # (Auto) (0.0-0.1) K/mm3 Add Manual Diff Seg Neutrophils % (40.0-70.0) % Seg Neutrophils # (1.8-7.7) K/mm3 Sodium 137 (137-145) mmol/L Potassium 4.2 (3.6-5.0) mmol/L Chloride 99.8 (98-107) mmol/L Carbon Dioxide 26 (22-30) mmol/L Anion Gap 15 mmol/L BUN 8 (7-17) mg/dL Creatinine 0.4 L (0.6-1.2) mg/dL Estimated GFR > 60 ml/min BUN/Creatinine Ratio 20 % Glucose 89 (65-100) mg/dL Calcium 9.3 (8.4-10.2) mg/dL Total Bilirubin 0.20 (0.1-1.2) mg/dL AST 25 (5-40) units/L ALT 28 (7-56) units/L Alkaline Phosphatase 106 (35-129) units/L Total Protein 7.0 (6.3-8.2) g/dL Albumin 4.0 (3.9-5) g/dL Albumin/Globulin Ratio 1.3 % HCG, Qual (Negative) HCG, Quant (0-4) mIU/mL Urine Color Yellow (Yellow) Urine Turbidity Clear (Clear) Urine pH 7.0 (5.0-7.0) Urine Protein 30 mg/dl (Negative) mg/dL Urine Glucose (UA) Negative (Negative) mg/dL Urine Ketones Negative (Negative) mg/dL Urine Nitrite Negative (Negative) Urine Bilirubin Negative (Negative) Urine Urobilinogen < 2.0 (<2.0) mg/dL Ur Leukocyte Esterase Large (Negative) Urine WBC (Auto) 35.0 H (0.0-6.0) /HPF Urine RBC (Auto) 3.0 (0.0-6.0) /HPF U Epithel Cells (Auto) 5.0 (0-13.0) /HPF Urine Bacteria (Auto) 2+ (Negative) /HPF Urine Mucus Few /HPF Blood Type O POSITIVE - Radiology Data Radiology results: report reviewed ULTRASOUND OBSTETRIC INDICATION / CLINICAL INFORMATION: vaginal bleeding in early . Clinical Gestational Age (GA): 7.4 weeks.days TECHNIQUE: Transabdominal. COMPARISON: Obstetric ultrasound dated 04/02/2020. FINDINGS: The uterus measures 10.0 x 4.7 x 7.2 cm and is normal in echogenicity. The endometrial stripe measures 2.7 cm in thickness. There is a 6 x 7 mm crescentic region of hypoechogenicity adjacent to the gestational sac. The right ovary measures 3.0 x 1.8 x 2.3 cm. The left ovary measures 3.6 x 2.5 x 5.8 cm. There is a 2.8 cm simple cyst arising from the left ovary. GESTATIONAL SAC: Well-defined oval shape and intrauterine in location. YOLK SAC: No significant abnormality. EMBRYO/FETUS: No significant abnormality. - Garden-Rump Length = 1.4 cm = 7.5 weeks.days - Heart Rate, beats per minute (if present) = 164 ADNEXA: No significant abnormality. FREE FLUID: None. ADDITIONAL FINDINGS: None. IMPRESSION: 1. Single, living intrauterine with estimated sonographic age of 7.5 weeks.days. 2. Small subchorionic hemorrhage measuring 7 x 6 mm. 3. 2.8 cm left ovarian cyst. - Medical Decision Making 39-year-old female patient presents with complaints of vaginal bleeding during and lower abdominal cramping pain x today. She states she is 7 weeks and is scheduled to see her DATA MANAGEMENT SPECIALIST tomorrow, however was told by her DATA MANAGEMENT SPECIALIST to come into the ED for an ultrasound. She is G4, . She states she has gone through 1 pad for bleeding. She rates her current abdominal pain as a 4/10 in severity and states it is mostly right-sided. She denies any dysuria/hematuria, vaginal discharge/dyspareunia, fever/chills/sweats, nausea/vomiting, or diarrhea/constipation/melena/hematochezia. On exam, she has mild suprapubic/right lower quadrant tenderness without rebound or guarding. Beta-hCG = [address]. CBC and CMP are normal. UA shows 35 WBCs. Urine culture sent. Ultrasound shows 7.5-week IUP with small subchorionic hemorrhage. Will treat for UTI and with Augmentin. Discussed pelvic rest and signs and symptoms that should prompt immediate return to the emergency department, patient verbalized understanding. Patient to follow-up with her DATA MANAGEMENT SPECIALIST tomorrow morning. Critical care attestation.: If time is entered above; I have spent that time in minutes in the direct care of this critically ill patient, excluding procedure time. ED Disposition Clinical Impression: 7 weeks gestation of , Yeast vaginitis, UTI (urinary tract infection) Subchorionic hemorrhage in first trimester Qualifiers: Fetus number: single or unspecified fetus Qualified Code(s): O41.8X10 - Other specified disorders of amniotic fluid and membranes, first trimester, not applicable or unspecified Disposition: DC-01 TO HOME OR SELFCARE Is pt being admited?: No Condition: Stable Instructions: Threatened Miscarriage (ED), Urinary Tract Infection in Women (ED) Additional Instructions: Please follow-up with your DATA MANAGEMENT SPECIALIST as scheduled tomorrow morning 04/08/2020. Subchorionic Hemorrhage Polina instrucciones de cuidado Un hematoma o hemorragia subcorinica es el sangrado debajo de jolie de las membranas (corion) que rodea al embrin dentro del tero. Es jolie causa comn de hemorragia al comienzo del embarazo. El sntoma principal es el sangrado vaginal. Melissa algunas mujeres no presentan sntomas. Pueden descubrir que tienen un hematoma yumi jolie prueba de ultrasonido. En la mayora de los casos, el sangrado desaparece por s solo. La mayora de las mujeres llegan a tener un beb kenny. Melissa en algunos casos, el sangrado es un signo de un aborto espontneo u otro problema con el embarazo. Es posible que cunningham mdico desee realizar jolie ecografa de seguimiento. La atencin de seguimiento es jolie parte clave de cunningham tratamiento y seguridad. Asegrese de programar y asistir a todas las citas, y de llamar a la lnea telefnica de cunningham mdico o enfermera si tiene problemas. Tambin es jolie buena idea conocer los resultados de polina pruebas y mantener jolie lista de los medicamentos que robyn. Him Coder puedes cuidarte en casa? Lleve un registro de cualquier sangrado y siga las pautas sobre cundo llamar a cunningham mdico. Tenga en cuenta que algo de sangrado yumi el primer trimestre o un hallazgo anormal en jolie ecografa puede: No le cause ningn problema a usted ni al beb. Result ser algo ms laury. Melissa si esto sucede, es mejor averiguarlo temprano. Entonces, usted y cunningham mdico pueden manejar cualquier complicacin ms temprano que tarde. Cundo deberas pedir ayuda? Llame al 911 en cualquier momento que crea que puede necesitar atencin de emergencia. Por ejemplo, llame si: Tiene un dolor intenso y repentino en el abdomen o la pelvis. Se desmay (perdi el conocimiento). Tiene sangrado vaginal toy. Llame a cunningham mdico ahora o busque atencin mdica inmediata si: Est mareado o aturdido, o siente que se va a desmayar. Tiene dolor nuevo o aumentado en el abdomen o la pelvis. Tiene sangrado vaginal nuevo o ms. Tiene dolor en el daisy vaginal. Tienes fiebre. Valencia que puede freda expulsado tejido. Guarde cualquier pauelo que pase. Llvelo al consultorio de cunningham mdico adams pronto arin pueda. Est atento a los cambios en cunningham cathleen y asegrese de comunicarse con cunningham mdico si: Tiene sntomas vaginales nuevos o peores, arin dolor, picazn o secrecin. No mejora arin se esperaba. Prescriptions: Clotrimazole [3-Day Vaginal Cream] 1 applicator VG QHS 7 Days #1 tube Amoxicillin/Potassium Clav [Augmentin 875-125 Tablet] 1 each PO BID 7 Days #14 tablet Print Language: MONGOLIAN
[2020-04-07 21:52] LABS: Alanine Aminotransferase 28 units/L (7-56); Blood Urea Nitrogen 8 mg/dL (7-17); Calcium 9.3 mg/dL (8.4-10.2); Hemolysis Index 1
[2020-04-07 21:53] LABS: BUN/Creatinine Ratio 20
--- NOTE | 2020-04-07 22:01 | Ultrasound Report ---
ULTRASOUND OBSTETRIC INDICATION / CLINICAL INFORMATION: vaginal bleeding in early . Clinical Gestational Age (GA): 7.4 weeks.days TECHNIQUE: Transabdominal. COMPARISON: Obstetric ultrasound dated 04/02/2020. FINDINGS: The uterus measures 10.0 x 4.7 x 7.2 cm and is normal in echogenicity. The endometrial stripe measure s 2.7 cm in thickness. There is a 6 x 7 mm crescentic region of hypoechogenicity adjacent to the gest ational sac. The right ovary measures 3.0 x 1.8 x 2.3 cm. The left ovary measures 3.6 x 2.5 x 5.8 cm. There is a 2 .8 cm simple cyst arising from the left ovary. GESTATIONAL SAC: Well-defined oval shape and intrauterine in location. YOLK SAC: No significant abnormality. EMBRYO/FETUS: No significant abnormality. - Numa-Rump Length = 1.4 cm = 7.5 weeks.days - Heart Rate, beats per minute (if present) = 164 ADNEXA: No significant abnormality. FREE FLUID: None. ADDITIONAL FINDINGS: None. IMPRESSION: 1. Single, living intrauterine with estimated sonographic age of 7.5 weeks.days. 2. Small subchorionic hemorrhage measuring 7 x 6 mm. 3. 2.8 cm left ovarian cyst. Signer Name: Nathan Orlando MD Signed: 04/07/2020 9:57 PM Workstation Name: [id number]
[2020-04-07 22:52] LABS: Hematocrit 36.1 % (30.3-42.9); Hemoglobin 12.3 gm/dl (10.1-14.3); Lymphocytes % (Auto) 22.5 % (13.4-35.0); Mean Corpuscular HGB Conc 34 % (30-34); Mean Corpuscular Volume 85 fl (79-97); Monocytes % (Auto) 7.3 % (0.0-7.3); Platelet Count 226 K/mm3 (140-440); Red Blood Count 4.25 M/mm3 (3.65-5.03); Red Cell Distribution Width 15.8 % (13.2-15.2)
[2020-04-07 22:53] LABS: Basophils % (Auto) 0.3 % (0.0-1.8); Eosinophils # (Auto) 0.1 K/mm3 (0.0-0.4); Eosinophils % (Auto) 1.7 % (0.0-4.3); Lymphocytes # (Auto) 1.5 K/mm3 (1.2-5.4); Monocytes # (Auto) 0.5 K/mm3 (0.0-0.8)
[2020-04-07 22:54] LABS: Color,Urine Yellow (Yellow)
[2020-04-07 22:55] LABS: Bilirubin,Urine Negative (Negative)
[2020-04-07 22:56] LABS: Urobilinogen,Urine < 2.0 mg/dL (<2.0)
[2020-04-07 22:58] LABS: Bacteria,Urine 2+ /HPF (Negative); Mucus,Urine Few /HPF
[2020-04-08 01:34] VITALS: BP 107/63
== END 2020-04-07 23:45 | disposition home or self-care (01) ==
LOC: ED 18:30
DX: O41.8X10 Other specified disorders of amniotic fluid and membranes, first trimester, not applicable or unspecified (principal); O23.41 Unspecified infection of urinary tract in pregnancy, first trimester; O23.591 Infection of other part of genital tract in pregnancy, first trimester; Z3A.01 Less than 8 weeks gestation of pregnancy
CPT/HCPCS: 36415; 76801; 80053; 81001; 84702; 84703; 85025; 86900; 86901; 87086

== ENCOUNTER 2020-11-03 15:57 | Inpatient (IN) | payer OTHER ==
[2020-11-03] MEDS ORDERED: LACTATED RINGERS 1,000 ML ONE (16:20)
--- NOTE | 2020-11-03 17:04 | History and Physical Report ---
History of Present Illness Date of examination: 11/03/20 Date of admission: 11/03/2020 Chief complaint: Presents from office in early labor History of present illness: Early entry to care, 1st trimester complicated by Dysuria (PO Macrobid and Ampicillin) and N&V (PO Promethazine); 3rd trimester complicated by GDM (well controlled on Diet). Past History Past Medical History: no pertinent history Past Surgical History: no surgical history Family/Genetic History: heart disease (Father), hypertension (Mother), cancer (MGM: Skin Ca) Social history: no significant social history, - Obstetrical History Expected Date of Delivery: 11/12/20 Actual Gestation: 38 Week(s) 5 Day(s) : 5 Para: 3 Spontaneous Abortions: 1 Number of Living Children: 3 #1 Infant Gender: Female year: 2,007 Birthweight: 3.856 kg Gestational age at delivery: 40 Complications: none #2 Infant Gender: Female year: 2,012 Birthweight: 4.082 kg Method of Delivery: Vaginal Gestational age at delivery: 40 #3 Gender: Female year: 2,019 Birthweight: 4.082 kg Method of Delivery: Vaginal Gestational age at delivery: 40 Medications and Allergies Allergies Allergy/AdvReac Type Severity Reaction Status Date / Time No Known Allergies Allergy Verified 01/17/19 11:46 Home Medications Medication Instructions Recorded Confirmed Last Taken Type Amoxicillin/Potassium Clav 1 each PO BID 7 Days #14 tablet 04/07/20 11/03/20 Unknown Rx [Augmentin 875-125 Tablet] Clotrimazole [3-Day Vaginal Cream] 1 applicator VG QHS 7 Days #1 tube 04/07/20 11/03/20 Unknown Rx Review of Systems All systems: negative - Vital Signs Vital signs: Vital Signs Pulse BP 73 105/61 11/03/20 16:29 11/03/20 16:29 Temp Pulse Resp BP Pulse Ox 72 105/61 97 11/03/20 16:55 11/03/20 16:29 11/03/20 16:55 - Physical Exam Breasts: Positive: normal Cardiovascular: Regular rate Lungs: Positive: Clear to auscultation, Normal air movement Abdomen: Positive: normal appearance, soft, normal bowel sounds Genitourinary (Female): Positive: normal external genitalia, normal perenium Vagina: Positive: normal moisture Uterus: Positive: enlarged Anus/Rectum: Positive: normal perianal skin Extremities: Positive: normal - Obstetrical FHR: category 1 Uterine Contraction Monitor Mode: External Cervical Dilatation: 5 (Vtx, Intact) Cervical Effacement Percentage: 70 station: -3 Uterine Contraction Pattern: Irregular Uterine Tone Measurement Phase: Resting Uterine Contraction Intensity: Moderate Results All other labs normal. Assessment and Plan A: IUP @ 38 5/7 Weeks Category I Tracing Early Labor GDM A1 GBS Negative P: Admit to L&D Per Routine Orders Accucheck q 6 hours Expectant Management
[2020-11-03] MEDS ORDERED: ePHEDrine SULFATE 50 MG/1 ML INJ IV PRN (17:09)
[2020-11-03] MEDS ORDERED: NALOXONE 0.4 MG/1 ML INJ IV PRN (17:09)
[2020-11-03] MEDS ORDERED: TERBUTALINE 1 MG/1 ML INJ SUB-Q PRN (17:09)
[2020-11-03] MEDS ORDERED: BUTORPHANOL 2 MG/1 ML INJ IV PRN (17:09)
[2020-11-03] MEDS ORDERED: ONDANSETRON 4 MG/2 ML INJ IV PRN (17:09)
[2020-11-03] MEDS ORDERED: LIDOCAINE (2%) 20 MG/1 ML VIAL 20 ML MDV INFILTRATI ONE (17:09)
[2020-11-03] MEDS ORDERED: MINERAL OIL 30 ML ORAL LIQD PO PRN (17:09)
[2020-11-03] MEDS ORDERED: LACTATED RINGERS 1,000 ML IV SCH (17:15)
[2020-11-03] MEDS ORDERED: OXYTOCIN DRIP 30 UNITS/500 ML BAG IV SCH (18:00)
[2020-11-03 18:28] LABS: Hematocrit 36.4 % (30.3-42.9); Hemoglobin 12.5 gm/dl (10.1-14.3); Mean Corpuscular HGB Conc 34 % (30-34); Mean Corpuscular Volume 87 fl (79-97); Platelet Count 143 K/mm3 (140-440); Red Blood Count 4.18 M/mm3 (3.65-5.03); Red Cell Distribution Width 15.3 % (13.2-15.2)
[2020-11-04] MEDS ORDERED: diphenhydrAMINE 25 MG CAP PO PRN (02:34)
[2020-11-04] MEDS ORDERED: BENZOCAINE/MENTHOL 20/0.5% TOP SPRAY 56 GM TP PRN (02:34)
[2020-11-04] MEDS ORDERED: WITCH HAZEL/ GLYCERIN PAD TP PRN (02:34)
[2020-11-04] MEDS ORDERED: LANOLIN/ZINC/DIMETHICONE (LANSINOH) 7 GM TP PRN (02:34)
--- NOTE | 2020-11-04 02:41 | Procedure Note ---
OB Delivery Note - Delivery Date of Delivery: 11/04/20 (0215) Surgeon: JL HERBERT Estimated blood loss: 200cc - Vaginal Delivery presentation: vertex Delivery position: OA Delivery induction: none Delivery augmentation: rupture of membranes (AROM of a moderate amount of clear fluid at 0213) Delivery monitor: external FHT, external uterine Route of delivery: Delivery placenta: spontaneous Delivery cord: 3 umbilical vessels Delivery laceration: 1st degree Delivery repair: vicryl Anesthesia: local Delivery comments: of a live 7'10 female infant over a 1st degree perineal laceration without pain control with Apgars of 8 and 9 at 0215 on 11/04/2020. directly to maternal abd/chest, skin to skin contact. Spontaneous delivery of the placenta complete and intact with Wang side presenting at 0217. Fundus is firm and midline located 4 below the U. Lochia is scant. Delayed cord clamping and cutting; Cord cut by the Father of the Baby. Cord blood collected; Placenta discarded. Perineal laceration repaired with 2-0 Vicryl on SH under local 2% Lidocaine. - A at 1 minute: 8 at 5 minutes: 9 Gender: Female (7'10)
[2020-11-04] MEDS: IBUPROFEN 600 MG TAB PO SCH ×3 (05:50→18:10)
[2020-11-04] MEDS ORDERED: SODIUM CHLORIDE 0.9% 500 ML 500 ML IV SCH (09:00)
[2020-11-04] MEDS: PRENATAL VIT27-FE FUMARATE-FOLIC ACID VIT TAB PO SCH (09:08)
[2020-11-04 14:09] LABS: Hematocrit 34.5 % (30.3-42.9); Hemoglobin 11.7 gm/dl (10.1-14.3)
[2020-11-04] MEDS: HYDROcodone/ACETAMINOPHEN 5-325 MG TAB PO PRN (20:05)
[2020-11-05] MEDS: IBUPROFEN 600 MG TAB PO SCH ×4 (03:27→21:00)
[2020-11-05] MEDS: PRENATAL VIT27-FE FUMARATE-FOLIC ACID VIT TAB PO SCH (09:59)
--- NOTE | 2020-11-05 12:57 | Progress Note ---
Assessment and Plan A: day 1 S/P . Afterbirth pains. P: Comfort measures discussed. Pt. has hydrocodone and Motrin ordered for pain. Urinalysis and CBC. Continue routine care. Subjective - Subjective Date of service: 11/05/20 Principal diagnosis: day 1 S/P . Interval history: Reports afterbirth cramping. States pain medications relieve. Patient reports: appetite normal, voiding normally, pain well controlled, flatus, ambulating normally, no dizzy ambulation, no nauseated : doing well Objective - Vital Signs Latest vital signs: Vital Signs Temp Pulse Resp BP BP Pulse Ox 11/05/20 09:59 16 11/05/20 07:26 97.7 F 69 16 96/58 95 11/05/20 01:18 98.0 F 66 18 90/53 96 11/04/20 18:10 18 11/04/20 16:45 97.9 F 75 18 90/61 95 Intake and Output 11/04/20 11/05/20 11/05/20 23:59 07:59 15:59 Intake Total 240 240 120 Balance 240 240 120 Intake: Oral 120 Intake, Free Water 240 240 Other: Total, Intake Amount 120 # Voids Void 2 2 1 - Exam Cardiovascular: Present: Regular rate Lungs: Present: Clear to auscultation Abdomen: Present: normal appearance, soft, normal bowel sounds. Absent: distention, tenderness, guarding, rigidity Uterus: Present: normal, firm, fundal height below umbilicus. Absent: bogginess, tenderness Extremities: Present: normal. Absent: tenderness
[2020-11-05 14:06] LABS: Basophils % (Auto) 0.1 % (0.0-1.8); Eosinophils # (Auto) 0.1 K/mm3 (0.0-0.4); Eosinophils % (Auto) 1.7 % (0.0-4.3); Hematocrit 33.7 % (30.3-42.9); Hemoglobin 11.4 gm/dl (10.1-14.3); Lymphocytes # (Auto) 1.2 K/mm3 (1.2-5.4); Lymphocytes % (Auto) 15.8 % (13.4-35.0); Mean Corpuscular HGB Conc 34 % (30-34); Mean Corpuscular Volume 88 fl (79-97); Monocytes # (Auto) 0.4 K/mm3 (0.0-0.8); Monocytes % (Auto) 4.7 % (0.0-7.3); Platelet Count 125 K/mm3 (140-440); Red Blood Count 3.84 M/mm3 (3.65-5.03); Red Cell Distribution Width 15.4 % (13.2-15.2)
[2020-11-05 16:34] LABS: Bilirubin,Urine NEG (Negative); Blood,Urine MOD (Negative); Color,Urine Yellow (Yellow); Mucus,Urine FEW /HPF; Protein,Urine <15 mg/dL mg/dL (Negative); Urobilinogen,Urine < 2.0 mg/dL (<2.0)
[2020-11-05] MEDS: HYDROcodone/ACETAMINOPHEN 5-325 MG TAB PO PRN (21:44)
[2020-11-06] MEDS: IBUPROFEN 600 MG TAB PO SCH (06:00)
--- NOTE | 2020-11-06 07:22 | Progress Note ---
Assessment and Plan A: day 2 S/P . Mildly decreased platelet count. Afterbirth pains. P: Repeat platelet count. Anticipate discharge home later today or tomorrow AM. Subjective - Subjective Date of service: 11/06/20 Principal diagnosis: day 2 S/P . Interval history: States afterbirth pains are improving. Mild decrease in platelet count; patient desires to repeat prior to discharge. Patient reports: appetite normal, voiding normally, pain well controlled, flatus, ambulating normally, no dizzy ambulation, no nauseated : doing well Objective - Vital Signs Latest vital signs: Vital Signs Temp Pulse Resp BP Pulse Ox 11/05/20 23:53 97.5 F L 65 18 98/55 97 11/05/20 17:13 16 11/05/20 16:05 99.0 F 78 18 105/60 98 11/05/20 09:59 16 11/05/20 07:26 97.7 F 69 16 96/58 95 Intake and Output 11/05/20 11/05/20 11/06/20 15:59 23:59 07:59 Intake Total 120 1440 240 Balance 120 1440 240 Intake: Oral 120 960 240 Intake, Free Water 480 Other: Total, Intake Amount 120 240 240 # Voids Void 1 1 1 - Exam Abdomen: Present: normal appearance, soft. Absent: distention, tenderness, guarding, rigidity Uterus: Present: normal, firm, fundal height below umbilicus. Absent: bogginess, tenderness Extremities: Present: normal. Absent: tenderness - Labs Labs: Abnormal lab results 11/05/20 Range/Units 13:35 RDW 15.4 H (13.2-15.2) % Plt Count 125 L (140-440) K/mm3 Seg Neutrophils % 77.7 H (40.0-70.0) %
[2020-11-06] MEDS: PRENATAL VIT27-FE FUMARATE-FOLIC ACID VIT TAB PO SCH (09:15)
[2020-11-06 17:12] VITALS: BP 95/53
--- NOTE | 2020-11-06 18:00 | Discharge Summary ---
Providers - Providers Date of Admission: 11/03/20 17:09 Date of discharge: 11/06/20 Attending physician: KATIE GOFF Primary care physician: KATIE GOFF Hospitalization Delivery: Other procedures: none complications: other (low platelet count) Discharge diagnosis: IUP at term delivered Hospital course: benign. plaTLET COUNT INCREASED. Condition at discharge: Good Disposition: DC-01 TO HOME OR SELFCARE - Discharge Diagnoses (1) Temporary low platelet count Status: Resolved (2) 40 weeks gestation of Status: Acute (3) Active labor at term Status: Acute (4) Advanced maternal age in Status: Acute Plan - Provider Discharge Summary Activity: routine Additional instructions: [] Smoking cessation referral if applicable(refer to patient education folder for contact #) [] Refer to [facility] Booklet Call your doctor immediately for: * Fever > 100.5 * Heavy vaginal bleeding ( >1 pad per hour) * Severe persistent headache * Shortness of breath * Reddened, hot, painful area to leg or breast * Drainage or odor from incision. * Keep incision clean and dry at all times and follow doctor's instructions regarding bathing/showering - Follow up plan Pending Studies none
== END 2020-11-06 18:00 | disposition home or self-care (01) | DRG 807 ==
LOC: TRG 15:57 → LD 16:01 → TRG 17:09 → LD 17:09 → OB 11-04 04:14
PROVIDERS: ADMIT Obstetrics & Gynecology; ATTEND Obstetrics & Gynecology
PROC: 10E0XZZ Delivery of Products of Conception, External Approach (ICD-10-PCS; principal; 2020-11-04)
PROC: 10907ZC Drainage of Amniotic Fluid, Therapeutic from Products of Conception, Via Natural or Artificial Opening (ICD-10-PCS; 2020-11-04)
DX: O24.429 Gestational diabetes mellitus in childbirth, unspecified control (principal); Z37.0 Single live birth; Z3A.38 38 weeks gestation of pregnancy; Z82.49 Family history of ischemic heart disease and other diseases of the circulatory system; Z80.8 Family history of malignant neoplasm of other organs or systems; Z79.899 Other long term (current) drug therapy; O70.0 First degree perineal laceration during delivery; O72.3 Postpartum coagulation defects; D69.6 Thrombocytopenia, unspecified; Z20.822 Contact with and (suspected) exposure to COVID-19
CPT/HCPCS: 36415; 59025; 81001; 82962; 85014; 85018; 85025; 85027; 85049; 86850; 86900; 86901; G0378; J2590; J7040; J7120; U0003